=== PATIENT | female | born 1990 | race Caucasian/White ===

== ENCOUNTER → 2022-08-07 11:09 | Outpatient (CLI) | payer OTHER, SELFPAY ==
[2022-08-07 14:38] LABS: HCG Quantitative /Beta subunit 2736.8 mIU/mL
== END ==
PROVIDERS: Referring Provider Obstetrics & Gynecology; Visit Provider Obstetrics & Gynecology
DX: O20.9 Hemorrhage in early pregnancy, unspecified (principal)
CPT/HCPCS: 36415; 84702

== ENCOUNTER → 2022-08-10 10:32 | Outpatient (CLI) | payer OTHER, SELFPAY ==
[2022-08-10 12:18] LABS: HCG Quantitative /Beta subunit 2370.7 mIU/mL
== END ==
PROVIDERS: Referring Provider Obstetrics & Gynecology; Visit Provider Obstetrics & Gynecology
DX: O20.9 Hemorrhage in early pregnancy, unspecified (principal)
CPT/HCPCS: 36415; 84702

== ENCOUNTER → 2022-08-14 14:10 | Outpatient (CLI) | payer OTHER, SELFPAY ==
--- NOTE | 2022-08-14 | DI.US.S_ITS ---
PROCEDURE: US OB <= 14 WEEKS FETUS INDICATIONS: SIZE AND DATES OUTSIDE/PRIOR DATING DATA: Last menstrual period (LMP): 06/20/2022. LMP-based estimated date of delivery (RENY): 03/27/2023. First dating scan (date and location): Today's exam. Estimated date of delivery (RENY) from first dating scan: 04/10/2023. TECHNIQUE: Real-time scanning was performed of the fetus and maternal pelvic organs, with image documentation. Endovaginal scanning was also performed to better visualize the fetus and maternal ovaries. COMPARISON: None. FINDINGS: Embryo: Intrauterine gestational sac present. pole measures 0.3 centimeters, corresponding to 5 weeks 6 days. Heart rate: No heart tone. Maternal organs: Ovaries are unremarkable. IMPRESSION: Intrauterine gestational sac visualized. pole measures 0.3 centimeters, without heart tone. Findings suspicious for, but not diagnostic failure. We strive to produce accurate, complete, and clear reports of imaging services. To assist us in improving patient care, this report was composed using standard report templates and voice recognition software. Therefore, it may contain abnormal punctuation, insertions and/or omissions. Occasional wrong-word or sound-alike substitutions may occur. Though we review the report and make efforts to correct it, we do recommend that the report be read carefully in proper context to recognize any text inaccuracies. Dictated by: Venkat Peñaloza M.D. on 08/14/2022 at 14:53 Approved by: Venkat Peñaloza M.D. on 08/14/2022 at 14:55
== END ==
PROVIDERS: Referring Provider Obstetrics & Gynecology; Visit Provider Obstetrics & Gynecology
DX: Z36.87 Encounter for antenatal screening for uncertain dates (principal)
CPT/HCPCS: 76801; 76817

== ENCOUNTER → 2022-08-17 13:55 | Outpatient (CLI) | payer OTHER, SELFPAY | PROVIDERS: Referring Provider Obstetrics & Gynecology; Visit Provider Obstetrics & Gynecology | DX: O02.1 Missed abortion (principal) | CPT/HCPCS: 36415; 86900; 86901 ==

== ENCOUNTER → 2023-03-10 08:46 | Outpatient (CLI) | payer OTHER, SELFPAY ==
--- NOTE | 2023-03-10 08:47 | DI.US.S_ITS ---
PROCEDURE: US OB TRANSVAGINAL INDICATIONS: DATES OUTSIDE/PRIOR DATING DATA: Last menstrual period (LMP): 01/05/23. LMP-based estimated date of delivery (RENY): 10/02/23. First dating scan (date and location): 03/10/23. Estimated date of delivery (RENY) from first dating scan: 11/03/23. TECHNIQUE: Real-time scanning was performed of the fetus, with image documentation. Endovaginal scanning: For improved detail COMPARISON: None. FINDINGS: There is an intrauterine gestational sac containing products of conception. There is a pole with crown-rump length of 0.3 cm which would correspond to a 6 week 0 day gestation. There is no detectable cardiac activity. Good appears to be the yolk sac is thin-walled and subjectively enlarged. There are lace-like linear echoes throughout the gestational sac. Clinically estimated gestational age: 9 weeks 1 day Estimated gestational age from current scan: 6 weeks 0 days. The maternal cervix is closed. No perigestational hemorrhage. Right ovary is normal without corpus luteum. Left ovary was not seen. IMPRESSION: 1. Intrauterine with fetus measuring 6 weeks 0 days and no detectable cardiac activity. While this may be an early , this is highly suggestive of demise, particularly given morphology of the yolk sac, debris within gestational sac, and in consistent dates. Close clinical follow-up and consider reimaging if beta HCG levels continue to rise. Dictated by: Patricia Villagomez M.D. on 03/10/2023 at 12:19 Approved by: Patricia Villagomez M.D. on 03/10/2023 at 12:25
== END ==
PROVIDERS: Referring Provider Obstetrics & Gynecology; Visit Provider Obstetrics & Gynecology
DX: O36.80X0 Pregnancy with inconclusive fetal viability, not applicable or unspecified (principal)
CPT/HCPCS: 76817

== ENCOUNTER → 2023-03-31 09:12 | Outpatient (CLI) | payer OTHER, SELFPAY ==
[2023-03-31 10:34] LABS: Add Manual Diff / Slide Review NO; Basophils Absolute Auto 100 /uL (0-100); Basophils Percent Auto 0.8 % (0-2); Eosinophils Absolute Auto 100 /uL (0-450); Eosinophils Percent Auto 0.8 % (2-4); Hematocrit 36.9 % (36-46); Hemoglobin 12.7 g/dL (12.0-16.0); Lymphocytes Absolute Auto 1700 /uL (1100-4500); Lymphocytes Percent Auto 24.8 % (25-40); Mean Corpuscular HGB Conc 34.5 % (30-36); Mean Corpuscular Volume 90.1 fL (80-100); Monocytes Absolute Auto 500 /uL (0-900); Neutrophils Absolute Auto 4500 /uL (1500-7000); Neutrophils Percent Auto 66.6 % (50-75); Platelet Count 317 X10^3/uL (150-400); Red Cell Distribution Width 13.2 % (11.6-14.8); White Blood Cell Count 6.8 X10^3/uL (4.5-11.0)
[2023-03-31 10:36] LABS: Hemoglobin A1C% w Est Avg Glu 5.2 % (4.0-6.0)
[2023-03-31 11:08] LABS: Prolactin 13.4 ng/mL (3.0-18.6)
[2023-04-01 07:13] LABS: RPR Screen Non Reactive (Non Reactive)
[2023-04-01 13:36] LABS: Varicella IgG Antibody 798 index (Immune >165)
[2023-04-01 17:29] LABS: Hepatitis B Surface Antigen NEGATIVE s/c (NEGATIVE); Rubella Antibody IgG 24.6 IU/mL (>15)
[2023-04-01 17:53] LABS: HIV 1 & 2 Ab/Ag 4th Gen Combo NEGATIVE (NEGATIVE); Hep C Virus Ab w/Reflex Quant NEGATIVE s/c (NEGATIVE)
== END ==
PROVIDERS: Obstetrics & Gynecology; Referring Provider Student in an Organized Health Care Education/Training Program; Visit Provider Student in an Organized Health Care Education/Training Program
DX: Z34.80 Encounter for supervision of other normal pregnancy, unspecified trimester (principal); N96 Recurrent pregnancy loss
CPT/HCPCS: 36415; 80055; 83036; 84146; 84443; 84702; 86787; 86803; 86850; 86870; 86900; 86901; 87086; 87389

== ENCOUNTER → 2023-04-13 09:45 | Outpatient (CLI) | payer OTHER, SELFPAY | PROVIDERS: Referring Provider Student in an Organized Health Care Education/Training Program; Visit Provider Student in an Organized Health Care Education/Training Program | DX: N96 Recurrent pregnancy loss (principal); O02.1 Missed abortion | CPT/HCPCS: 36415; 88230; 88262; 88291 ==

== ENCOUNTER → 2024-05-17 08:31 | Outpatient (CLI) | payer OTHER, SELFPAY ==
--- NOTE | 2024-05-17 08:32 | DI.US.S_ITS ---
PROCEDURE: US PELVIC COMPLETE INDICATIONS: abnormal uterine bleeding TECHNIQUE: Real-time scanning was performed of the pelvic organs, with image documentation. Additional endovaginal scanning was necessary due to incomplete visualization of the adnexal and endometrial structures by transabdominal scanning. COMPARISON: [facility], US, US PELVIC COMPLETE, 05/26/2023, 8:31. FINDINGS: Uterus: Uterus is anteverted and normal in size at 7.6 x 4.2 x 3.6 cm. The myometrium is homogeneous. The endometrium measures 19 mm combined thickness. Endometrium is relatively homogeneous. Ovaries: The right ovary measures 2.3 x 1.3 x 2.2 cm, with a calculated ovarian volume of 3 cc. The left ovary measures 2.4 x 2.8 x 2.3 cm, with a calculated ovarian volume of 8 cc. The ovaries have a normal sonographic appearance. Less than 12 follicles can be seen in each ovary. No adnexal masses are seen. Simple left ovarian follicle. Other: No pathologic free abdominal or pelvic fluid. IMPRESSION: Endometrium measures 19 mm, upper limits of normal for age. Normal sonographic appearance of the ovaries. We strive to produce accurate, complete, and clear reports of imaging services. To assist us in improving patient care, this report was composed using standard report templates and voice recognition software. Therefore, it may contain abnormal punctuation, insertions and/or omissions. Occasional wrong-word or sound-alike substitutions may occur. Though we review the report and make efforts to correct it, we do recommend that the report be read carefully in proper context to recognize any text inaccuracies. Dictated by: Venkat Peñaloza M.D. on 05/17/2024 at 12:25 Approved by: Venkat Peñaloza M.D. on 05/17/2024 at 12:27
== END ==
PROVIDERS: PCP Student in an Organized Health Care Education/Training Program; Referring Provider Student in an Organized Health Care Education/Training Program; Visit Provider Student in an Organized Health Care Education/Training Program
DX: N93.9 Abnormal uterine and vaginal bleeding, unspecified (principal)
CPT/HCPCS: 76830; 76856

== ENCOUNTER → 2024-06-05 08:49 | Outpatient (CLI) | payer OTHER, SELFPAY ==
[2024-06-05 10:15] LABS: Prolactin 11.1 ng/mL (3.0-18.6)
[2024-06-05 10:17] LABS: Follicle Stimulating Hormone 4.71 mIU/mL
[2024-06-05 10:31] LABS: Thyroid Stimulating Hormone 2.75 uIU/mL (0.47-4.68)
[2024-06-05 10:32] LABS: Estradiol, Total 43.5 pg/mL
[2024-06-08 18:36] LABS: Anti Mullerian Hormone 1.86 ng/mL (.)
== END ==
PROVIDERS: PCP Student in an Organized Health Care Education/Training Program; Referring Provider Student in an Organized Health Care Education/Training Program; Visit Provider Student in an Organized Health Care Education/Training Program
DX: N96 Recurrent pregnancy loss (principal)
CPT/HCPCS: 36415; 82397; 82670; 83001; 84146; 84443

== ENCOUNTER → 2024-06-26 08:23 | Outpatient (CLI) | payer OTHER, SELFPAY ==
[2024-06-26 09:37] LABS: Free T4, Direct Thyroxine 1.03 ng/dL (0.78-2.19)
[2024-06-26 09:50] LABS: Thyroid Stimulating Hormone 3.16 uIU/mL (0.47-4.68)
[2024-06-28 15:12] LABS: Dilute Russell Viper Venom 40.5 sec (0.0-47.0); Lupus Reflex Interpretation Comment: (.); PTT-LA 31.8 sec (0.0-43.5)
[2024-07-11 08:36] LABS: Cardiolipin IgA Negative (.)
== END ==
PROVIDERS: PCP Student in an Organized Health Care Education/Training Program; Referring Provider Obstetrics & Gynecology; Visit Provider Obstetrics & Gynecology
DX: N96 Recurrent pregnancy loss (principal)
CPT/HCPCS: 36415; 83520; 84439; 84443; 85598; 85613; 86147; 86148

== ENCOUNTER → 2024-07-27 09:24 | Outpatient (CLI) | payer OTHER, SELFPAY ==
[2024-07-27 10:53] LABS: HCG Quantitative /Beta subunit 414.68 mIU/mL
== END ==
PROVIDERS: PCP Student in an Organized Health Care Education/Training Program; Referring Provider Obstetrics & Gynecology; Visit Provider Obstetrics & Gynecology
DX: N91.2 Amenorrhea, unspecified (principal); N96 Recurrent pregnancy loss
CPT/HCPCS: 36415; 84702

== ENCOUNTER → 2024-07-29 08:13 | Outpatient (CLI) | payer OTHER, SELFPAY ==
[2024-07-29 09:49] LABS: HCG Quantitative /Beta subunit 794.87 mIU/mL
== END ==
PROVIDERS: PCP Student in an Organized Health Care Education/Training Program; Referring Provider Obstetrics & Gynecology; Visit Provider Obstetrics & Gynecology
DX: N91.2 Amenorrhea, unspecified (principal); N96 Recurrent pregnancy loss
CPT/HCPCS: 36415; 84702

== ENCOUNTER → 2024-08-23 14:50 | Outpatient (CLI) | payer OTHER, SELFPAY ==
[2024-08-23 20:09] LABS: Urine N gonorrhoeae NOT DETECTED
[2024-08-23 20:11] LABS: Urine Chlamydia NOT DETECTED
== END ==
PROVIDERS: PCP Student in an Organized Health Care Education/Training Program; Visit Provider Obstetrics & Gynecology
DX: Z11.3 Encounter for screening for infections with a predominantly sexual mode of transmission (principal); Z3A.08 8 weeks gestation of pregnancy
CPT/HCPCS: 87491; 87591

== ENCOUNTER → 2024-09-06 08:29 | Outpatient (CLI) | payer OTHER, SELFPAY ==
[2024-09-06 09:03] LABS: Add Manual Diff / Slide Review NO; Basophils Absolute Auto 100 /uL (0-100); Basophils Percent Auto 0.6 % (0-2); Eosinophils Absolute Auto 0 /uL (0-450); Eosinophils Percent Auto 0.4 % (2-4); Hematocrit 35.3 % (36-46); Hemoglobin 12.4 g/dL (12.0-16.0); Lymphocytes Absolute Auto 1900 /uL (1100-4500); Lymphocytes Percent Auto 21.4 % (25-40); Mean Corpuscular Hemoglobin 31.8 PG (26-34); Mean Corpuscular Volume 90.7 fL (80-100); Monocytes Absolute Auto 600 /uL (0-900); Monocytes Percent Auto 6.9 % (3-14); Neutrophils Absolute Auto 6200 /uL (1500-7000); Neutrophils Percent Auto 70.7 % (50-75); Platelet Count 260 X10^3/uL (150-400); Red Blood Cell Count 3.89 X10^6/uL (4.0-5.2); Red Cell Distribution Width 12.5 % (11.6-14.8); White Blood Cell Count 8.8 X10^3/uL (4.5-11.0)
[2024-09-06 10:03] LABS: Free T4, Direct Thyroxine 1.29 ng/dL (0.78-2.19)
[2024-09-06 10:16] LABS: Thyroid Stimulating Hormone 1.08 uIU/mL (0.47-4.68)
[2024-09-06 10:18] LABS: Hepatitis B Surface Antigen NEGATIVE s/c (NEGATIVE); Rubella Antibody IgG 26.1 IU/mL (>15)
[2024-09-06 10:37] LABS: HIV 1 & 2 Ab/Ag 4th Gen Combo NEGATIVE (NEGATIVE); Hep C Virus Ab w/Reflex Quant NEGATIVE s/c (NEGATIVE)
[2024-09-07 04:40] LABS: RPR Screen Non Reactive (Non Reactive)
[2024-09-07 09:39] LABS: Varicella IgG Antibody Reactive (Non Reactive)
== END ==
PROVIDERS: PCP Student in an Organized Health Care Education/Training Program; Referring Provider Obstetrics & Gynecology; Visit Provider Obstetrics & Gynecology
DX: Z34.81 Encounter for supervision of other normal pregnancy, first trimester (principal); E03.9 Hypothyroidism, unspecified
CPT/HCPCS: 36415; 80055; 84439; 84443; 86787; 86803; 86850; 86900; 86901; 87389

== ENCOUNTER → 2024-11-22 08:27 | Outpatient (CLI) | payer OTHER, SELFPAY | PROVIDERS: PCP Student in an Organized Health Care Education/Training Program; Visit Provider Obstetrics & Gynecology | DX: Z34.80 Encounter for supervision of other normal pregnancy, unspecified trimester (principal) | CPT/HCPCS: 87086 ==

== ENCOUNTER → 2024-11-22 08:42 | Outpatient (CLI) | payer OTHER, SELFPAY ==
[2024-11-22 10:25] LABS: Free T4, Direct Thyroxine 1.09 ng/dL (0.78-2.19)
[2024-11-22 10:39] LABS: Thyroid Stimulating Hormone 1.33 uIU/mL (0.47-4.68)
== END ==
PROVIDERS: PCP Student in an Organized Health Care Education/Training Program; Referring Provider Obstetrics & Gynecology; Visit Provider Obstetrics & Gynecology
DX: E03.9 Hypothyroidism, unspecified (principal); Z3A.21 21 weeks gestation of pregnancy; Z34.82 Encounter for supervision of other normal pregnancy, second trimester
CPT/HCPCS: 36415; 82105; 84439; 84443

== ENCOUNTER → 2024-11-22 10:43 | Outpatient (CLI) | payer OTHER, SELFPAY ==
--- NOTE | 2024-11-22 10:44 | DI.US.S_ITS ---
PROCEDURE: US OB >= 14 WEEKS FETUS INDICATIONS: 20 week anatmy scan OUTSIDE/PRIOR DATING DATA: Last menstrual period (LMP): 06/28/2024. LMP-based estimated date of delivery (RENY): 04/04/2025. First dating scan (date and location): 08/16/2024. Estimated date of delivery (RENY) from first dating scan: 04/03/2025. The calculations are made using the clinical RENY of 04/04/2025. TECHNIQUE: Real-time scanning was performed of the fetus, with image documentation and biometric measurements. Endovaginal scanning: Not performed COMPARISON: [facility], , OB >= 14 WEEKS FETUS, 10/13/2024, 14:45. FINDINGS: General: A single living intrauterine gestation is present. Presentation: Breech. Placenta: Placental position is anterior, without previa. Amniotic fluid index: 18.4 cm, normal range is 5-24 cm. Single deepest vertical pocket is 5.8 cm. heart rate: 135 beats per minute. Maternal cervical canal: 4.8 cm long. Normal lower limit is 2.5 cm. biometrics: Biparietal diameter: 5.1 cm, 21 weeks 4 days Head circumference: 18.4 cm, 20 weeks 5 days Abdominal circumference: 15.9 cm, 21 weeks 0 days Femur length: 3.5 cm, 20 weeks 6 days Clinically estimated gestational age: 21 weeks 0 days Composite gestational age from present scan: 21 weeks 0 days Estimated weight and percentile: 389 g, 42nd percentile. Anatomic survey: Neuro: Ventricles are non-dilated at less than 10 mm. Cisterna magna is normal at 3-11 mm. Cerebellum is normal in size and morphology. Nuchal skin fold: Normal at less than 6 mm between 14-21 weeks gestational age. Face: Nose and lips, facial profile are normal. Spine: No evidence for spina bifida. Heart: 4-chambered heart is present, with normal ventricular outflow tracts. Diaphragm: Diaphragm is intact. Stomach: Left-sided stomach is present. Kidneys: No hydronephrosis. Normal is less than 5 mm in 2nd trimester, less than 7 mm in 3rd trimester. Cord: 3-vessel cord has orthotopic insertion. Bladder: Normal in size. Extremities: All 4 extremities identified. IMPRESSION: 1. Dove living intrauterine at 21 weeks 0 days based on today's ultrasound. Fetus is in the 42nd percentile for weight. 2. Normal placenta and amniotic fluid. 3. Normal and complete anatomic survey. We strive to produce accurate, complete, and clear reports of imaging services. To assist us in improving patient care, this report was composed using standard report templates and voice recognition software. Therefore, it may contain abnormal punctuation, insertions and/or omissions. Occasional wrong-word or sound-alike substitutions may occur. Though we review the report and make efforts to correct it, we do recommend that the report be read carefully in proper context to recognize any text inaccuracies. Dictated by: Juan Miguel Muhammad M.D. on 11/22/2024 at 14:27 Approved by: Juan Miguel Muhammad M.D. on 11/22/2024 at 14:32
== END ==
LOC: US 10:43
PROVIDERS: PCP Student in an Organized Health Care Education/Training Program; Referring Provider Obstetrics & Gynecology; Visit Provider Obstetrics & Gynecology
DX: Z34.92 Encounter for supervision of normal pregnancy, unspecified, second trimester (principal); Z3A.20 20 weeks gestation of pregnancy
CPT/HCPCS: 36415; 76811; 82105; 84439; 84443; 87086